=== PATIENT | female | born 1940 | race Caucasian/White ===

== ENCOUNTER 2017-03-23 05:35 | Day surgery (SDC) | payer MEDICARE, OTHER ==
[2017-03-23] VITALS (8 sets, daily range): BP systolic 120–148; BP diastolic 60–85; PULSE 63–70; RESP 15–17; O2SAT 96–100
[~2017-03-23] VITALS: Ht 160 cm; Wt 66.9 kg
[~2017-03-23 05:35] MED LIST: ASPI-973 PO; CHOL400T PO; IBUP200C PO; LACT1CAP60 PO; LOPE-147 PO; VARE0.5T PO; methocarbamol
[2017-03-23] MEDS ORDERED: MetoCLOpramide 5 mg/mL 2 mL Inj ONE (05:36)
[2017-03-23] MEDS ORDERED: Dexamethasone 4 mg/mL Inj ONE (05:36)
[2017-03-23] MEDS ORDERED: Ondansetron 2 mg/mL 2 mL Inj ONE (05:36)
[2017-03-23] MEDS ORDERED: Propofol 10,000 mCg/mL 20 mL Inj ONE (05:36)
[2017-03-23] MEDS ORDERED: CeFAZolin 2 Gm/50 mL D5W IV Premix IV ONE (06:00)
[2017-03-23] MEDS: Lactated Ringer's 1,000 ML IV SCH ×2 (06:39→09:51)
--- NOTE | 2017-03-23 08:38 | PCM.HPANE ---
Patient Data Surgeon Admitting Provider: Attending Provider:Krysten Matson MD Primary Care Physician:Jose Easton MD Other Provider:Sue Coxingham Anesthesia Reason for Visit Right Kidney Stone Ht/WT & BMI Height (Feet): 5 Height (Inches): 3.00 Weight (Kilograms): 66.900 Body Mass Index 26.00 Allergies Coded Allergies: Sulfa (Sulfonamide Antibiotics) (Verified Allergy, Unknown, hives, 03/21/17 ) bupropion (Verified Allergy, Unknown, hives, 03/21/17) Past Anesthesia History Anesthesia History: Denies:: Anesthesia Reactions Diabetes History Hx Diabetes?: No Medications Blood Thinner: Aspirin Home Meds Incl Beta Heber: No Reported Medications [methocarbamol] No Conflict CheckUnknown Dose DAILY 03/21/17 Cholecalciferol (Vitamin D3) (Vitamin D3)400 Unit [id number] Unit PO DAILY 03/21/17 Lactobac Cmb #3/Fos/Pantethine (Probiotic & Acidophilus Cap)1 Each Capsule1 Each PO DAILY 03/21/17 Loperamide HCl (Imodium A-D)2 Mg Capsule2 Mg PO PRN For Diarrhea or Loose Stool 03/21/17 Ibuprofen 200 Mg [id number] Mg PO QID PRN For Pain Ref 0 03/21/17 Aspirin 81 Mg Burfmv60 Mg PO DAILY Ref 0 03/21/17 Discontinued Reported Medications Varenicline Tartrate (Chantix)0.5 Mg Tablet0.5 Mg PO DAILY 03/21/17 History History of ENT Problems?: Yes HEENT History: Positive for:: Sinus Problem (sinus surgery) Denture Type: None Teeth Condition: Within Normal Limits Hx of Heart Problems?: No Cardiovascular History: Denies:: AICD Abdominal Aortic Aneurism Atrial Fibrillation Cardiac Surgery Chest Pain Congestive Heart Failure Coronary Artery Disease Edema Heart Murmur Hypertension Irregular Heartbeat Pacemaker Peripheral Vascular Rheumatic Fever Thrombophlebitis Valvular Heart Disease Hx of Respiratory Problem?: No Respiratory History: Denies:: Oxygen Administration Use of C-PAP Machine Hx Neurologic Problems?: Yes Neurological History: Positive for:: Dizziness (prior hx positional vertigo) Hx of GI Problems?: No Hx of Problems?: Yes Genitourinary History: Positive for:: Kidney Stones (right kidney stone current admission problem) Hx Musculoskeletal Problems?: Yes Musculoskeletal History: Positive for:: Back Injury (currently on methocarbamol, hx of prior back surgery) Hx of Psycho/Social Problems?: No Hx Surgeries?: Yes (sinus surgery, back surgery) Hx Any Other Health Problems?: Yes Other History: Denies:: Cancer Hx Diabetes: No Hx Alcohol Use: NoHave You Smoked inLast 12 mo: YesApprox How Many Cigarettes/ day: 5-10 cig daily Stop/Bang Treated for Sleep Apnea?: No Do You Have a CPAP Machine?: No S-Snoring: Do You Snore Loudly: No T-Tired: feel tired, fatigued: Yes O-Obsered: Observed not breath: No P-Blood Pressure: treated: No B- Body Mass Index > 35 kg/m2: No A- Age over 50: Yes N- Neck Large Circumference: No G- Gender Male: No LUIS A Total Score: 2 LUIS A Risk Assessment: Low Risk, <3 Yes Risk Assessment Category Category 1A: Patient has history of documented sleep apnea, and HAS NOT received any narcotic, sedative or anesthesia administration during this stay. Category 1B: Patient has history of documented sleep apnea, and HAS received any narcotic , sedative or anesthesia administration during this stay Category 2: Patient has SUSPECTED Obstructive Sleep Apnea, and HAS received any narcotic , sedative or anesthesia administration during this stay. Category 3: Patient has SUSPECTED Obstructive Sleep Apnea and HAS NOT received narcotic, sedative or anesthesia administration during this stay. Category 4: Outpatient in Procedural Areas with known sleep apnea or who screen positive for High Risk via the STOP/BANG questionnaire. Exam Exam Vital Signs Vital Signs Date Time Temp Pulse Resp B/P Pulse Ox O2 Delivery O2 Flow Rate FiO2 03/23/17 06:53 36.2 70 16 148/85 97 Room Air General Appearance: Oriented X3 HEENT/AIRWAY: MP 2 Lungs: Normal Air Movement Heart: Regular Rate/Rhythm Meds/Labs/Diagnostics Admission Meds Current Medications Lactated Ringer's (Lr) 1,000 ml @ 120 mls/hr [id number] IV Last administered on t 06:39; Start 03/23/17 at 05:00; Stop 03/23/17 at 13:19 Plan Impression Patient chart reviewed, patient interviewed and anesthestic plan with risks, benefits, and alternatives discussed, and informed consent obtained. ASA Physical Status: ASA2 Mod Systemic Disease Anesthetic Plan: GA Bene/Risks/Altern/Consents: Yes HP Complete Prior to Induction: Yes Alex Lemus MD Mar 23, 2017 08:38
[2017-03-23] MEDS ORDERED: Belladonna Alk-Opium 60 mg Rectal Suppository RECTAL ONE ×2 (08:58→09:52)
[2017-03-23] MEDS ORDERED: Lactated Ringer's 1,000 ML IV SCH (09:08)
[2017-03-23] MEDS ORDERED: Lactated Ringer's 500 ML IV PRN (09:08)
[2017-03-23] MEDS ORDERED: HYDROmorphone 1 mg/mL Inj IVPUSH PRN (09:10)
[2017-03-23] MEDS ORDERED: Phenylephrine 10,000 mCg/mL Inj IVPUSH PRN (09:10)
[2017-03-23] MEDS ORDERED: MetoCLOpramide 5 mg/mL 2 mL Inj IVPUSH PRN (09:10)
[2017-03-23] MEDS ORDERED: fentaNYL-PF 50 mCg/mL 2 mL Inj IVPUSH PRN (09:10)
[2017-03-23] MEDS ORDERED: Labetalol 5 mg/mL 4 mL Inj IV PRN (09:10)
[2017-03-23] MEDS ORDERED: Dexamethasone 4 mg/mL Inj IVPUSH PRN (09:10)
[2017-03-23] MEDS ORDERED: Ondansetron 2 mg/mL 2 mL Inj IVPUSH PRN (09:10)
[2017-03-23] MEDS ORDERED: EPHEDrine Sulfate 50 mg/mL Inj IVPUSH PRN (09:10)
[2017-03-23] MEDS ORDERED: Ondansetron 8 mg ODT Tablet PO PRN (10:05)
[2017-03-23] MEDS ORDERED: HYDROcodone-APAP 5-325 mg Tablet PO PRN (10:05)
--- NOTE | 2017-03-23 10:23 | OP ---
[address] [address] OPERATIVE REPORT PATIENT: VIKI AMADOR : 1940 MR#: [id number] ADMIT: 03/23/2017 JOB ID: [id number] DATE OF SURGERY: 03/23/2017 PREOPERATIVE DIAGNOSIS(ES): Right renal calculi. POSTOPERATIVE DIAGNOSIS(ES): Right renal calculi. PROCEDURE: 1. Cystoscopy. 2. Right stent placement. 3. Right extracorporeal shock wave lithotripsy. ANESTHESIA: General anesthetic. SURGEON: Krysten Matson MD. DESCRIPTION OF PROCEDURE: Under a general anesthetic, the patient was placed in the lithotomy position. Genitalia prepped and draped in a sterile manner. A 22-[place] cystoscope was introduced through a normal urethra. A 0.035 Glidewire was advanced to the level of the right renal pelvis. Over the Glidewire a 6-[place] 22 cm double-J stent was passed. When the stent was confirmed to be in good position fluoroscopically, the wire was withdrawn. The patient was transferred to the supine position. Stones were readily localized fluoroscopically. A total of 2500 shocks were delivered primarily to the larger stone in the renal pelvis. There was excellent radiographic fragmentation of the larger stone and partial fragmentation of the smaller stone. I will see her back in one week with a KUB. It is likely she is going to need a second treatment.
--- NOTE | 2017-03-23 10:43 | PCM.ANEP1 ---
Post Anesthesia PACU Phase 1 Assessment Vital Signs Vital Signs Date Time Temp Pulse Resp B/P Pulse Ox O2 Delivery O2 Flow Rate FiO2 03/23/17 10:15 69 16 132/61 98 Room Air 03/23/17 10:11 63 17 121/62 99 Simple Mask 10 03/23/17 10:05 64 15 120/64 99 Simple Mask 10 03/23/17 10:00 36.5 69 17 127/64 99 Simple Mask 10 03/23/17 06:53 36.2 70 16 148/85 97 Room Air Anesthetic Administered: GA Level of Alertness: Awake, talking Pain: No Nausea or Vomiting: No CV Function & Hydration Stable: Yes Airway Device: Lungs: Normal Air Movement PACU Phase 2 Assessment Patient Instructions Provided: N/A Alex Lemus MD Mar 23, 2017 10:43
--- NOTE | 2017-03-23 16:54 | DRSVH ---
PROCEDURE: X-RAY KUB ([id number]) INDICATIONS: RIGHT KIDNEY STONE TECHNIQUE: One view of the abdomen acquired. COMPARISON: [facility], , KUB XRAY (1 VIEW ABDOMEN), 03/15/2017, 9:54. FINDINGS: Surgical changes and devices: None. Bowel: Bowel gas pattern is normal. Soft tissues: 1.2 and 1.3 cm calcifications projected over the midpole of the right kidney. Several pelvic calcifications likely phleboliths. Bones: No suspicious bony lesions. IMPRESSION: 2 calcifications again seen projected over the right kidney. Dictated by: Joe Edward [facility] Interpreted: Joi Huber MD on 03/23/2017 at 9:06 Approved by: Joi Huber M.D. on 03/23/2017 at 16:52
== END 2017-03-23 23:59 | disposition home or self-care (01) ==
LOC: SAS 05:35
PROVIDERS: ATTEND Urology
DX: N20.0 Calculus of kidney (principal); M54.9 Dorsalgia, unspecified; F17.210 Nicotine dependence, cigarettes, uncomplicated; Z79.891 Long term (current) use of opiate analgesic; Z79.82 Long term (current) use of aspirin
CPT/HCPCS: 50590; 52332; 74000; C2617; J0690; J1100; J2405; J2765; J7120